=== PATIENT | female | born 1955 | race Caucasian/White ===

== ENCOUNTER 2018-01-26 21:40 | Inpatient (IN) | payer OTHER ==
[~2018-01-26] VITALS: Ht 157.5 cm; Wt 66.8 kg
[~2018-01-26 21:40] MED LIST: ADVAIR 250/501 DISK IH; MICROZIDE12.5 M1 PO; PROVENTIL,2.5 MG/0.5 IH; SINGULAIR10 MG PO; SPIRIVA RESPIMAT4 GM IH
[2018-01-27] VITALS (7 sets, daily range): BP systolic 139–186; BP diastolic 71–98
[2018-01-27 20:17] LABS: HEMATOCRIT 49.1 % (36.0-46.0); HEMOGLOBIN 16.1 G/DL (11.9-15.5); MCH 30.8 PG (29.0-34.0); MCHC 32.8 G/DL (30.0-36.0); MCV 94.1 FL (83-99); PLATELET COUNT 286 K/uL (156-360); RBC DIS.WIDTH-CV 13.3 % (11.8-14.6); RBC DIS.WIDTH-SD 46.3 % (39-53); RED BLOOD COUNT 5.22 M/uL (3.80-5.20); WHITE BLOOD COUNT 14.7 K/uL (4.1-10.2)
[2018-01-27 20:33] LABS: CHLORIDE 104 MEQ/L (99-109); CREATININE 0.7 MG/DL (0.6-1.3); GFR ESTIMATE (CALCULATED) > 59 mL/min/; GLUCOSE 173 mg/dL (70-99); POTASSIUM 4.3 MEQ/L (3.7-5.4); SODIUM 134 MEQ/L (136-147); UREA NITROGEN (BUN) 8 mg/dL (9-23)
[2018-01-27 21:24] LABS: PCO2 45 mm Hg (35-45); PO2 142 mm Hg (80-100); pH 7.32 (7.35-7.45)
[2018-01-27 21:25] LABS: BASE EXCESS -3.1 mEq/L (-3 to +3); BICARBONATE 23.2 mEq/L (22-26); COMMENTS - BLOOD GASES A+C+; DEVICE VENT; FI02 50 %; MECHANICAL RATE 14 resp/min; METHEMOGLOBIN 1.3 % (0-1.5); MODE ACVC; O2 SATURATION (CALCULATED) 98.8 % (95-99); SITE LR; TIDAL VOLUME 500 ML; TOTAL RESP RATE 14 resp/min
[2018-01-28] VITALS (19 sets, daily range): BP systolic 84–185; BP diastolic 55–80
[2018-01-28 05:46] LABS: HEMATOCRIT 36.9 % (36.0-46.0); HEMOGLOBIN 12.1 G/DL (11.9-15.5); MCH 30.6 PG (29.0-34.0); MCHC 32.8 G/DL (30.0-36.0); MCV 93.2 FL (83-99); PLATELET COUNT 228 K/uL (156-360); RBC DIS.WIDTH-CV 13.8 % (11.8-14.6); RBC DIS.WIDTH-SD 47.6 % (39-53); RED BLOOD COUNT 3.96 M/uL (3.80-5.20); WHITE BLOOD COUNT 10.6 K/uL (4.1-10.2)
[2018-01-28 05:58] LABS: CHLORIDE 106 MEQ/L (99-109); CREATININE 0.7 MG/DL (0.6-1.3); GFR ESTIMATE (CALCULATED) > 59 mL/min/; GLUCOSE 126 mg/dL (70-99); MAGNESIUM 1.2 mg/dl (1.3-2.7); PHOSPHORUS 3.6 mg/dL (2.5-4.9); POTASSIUM 4.1 MEQ/L (3.7-5.4); SODIUM 137 MEQ/L (136-147); UREA NITROGEN (BUN) 7 mg/dL (9-23)
[2018-01-28 06:19] LABS: COMMENTS - BLOOD GASES C+A+; DEVICE VENT; FI02 40 %; MECHANICAL RATE 14 resp/min; MODE AC; PCO2 41 mm Hg (35-45); PEEP 5 CM/H20; SITE RR; TIDAL VOLUME 500 ML; TOTAL RESP RATE 14 resp/min; pH 7.36 (7.35-7.45)
[2018-01-28 06:20] LABS: BASE EXCESS -2.2 mEq/L (-3 to +3); BICARBONATE 23.2 mEq/L (22-26); CARBOXY HGB 1.9 % (0-5); METHEMOGLOBIN 1.1 % (0-1.5); PO2 93 mm Hg (80-100)
[2018-01-29] VITALS (9 sets, daily range): BP systolic 108–168; BP diastolic 55–89
[2018-01-29 05:42] LABS: HEMATOCRIT 33.7 % (36.0-46.0); MCH 30.6 PG (29.0-34.0); MCHC 32.6 G/DL (30.0-36.0); MCV 93.9 FL (83-99); PLATELET COUNT 203 K/uL (156-360); RBC DIS.WIDTH-CV 13.6 % (11.8-14.6); RBC DIS.WIDTH-SD 47.3 % (39-53); RED BLOOD COUNT 3.59 M/uL (3.80-5.20); WHITE BLOOD COUNT 9.1 K/uL (4.1-10.2)
[2018-01-29 06:32] LABS: CHLORIDE 103 MEQ/L (99-109); CREATININE 0.7 MG/DL (0.6-1.3); GFR ESTIMATE (CALCULATED) > 59 mL/min/; GLUCOSE 96 mg/dL (70-99); POTASSIUM 3.6 MEQ/L (3.7-5.4); SODIUM 140 MEQ/L (136-147); UREA NITROGEN (BUN) 5 mg/dL (9-23)
[2018-01-29 06:33] LABS: MAGNESIUM 1.7 mg/dl (1.3-2.7); PHOSPHORUS 2.3 mg/dL (2.5-4.9)
[2018-01-30 06:42] LABS: HEMATOCRIT 37.1 % (36.0-46.0); HEMOGLOBIN 12.5 G/DL (11.9-15.5); MCH 31.6 PG (29.0-34.0); MCHC 33.7 G/DL (30.0-36.0); MCV 93.9 FL (83-99); PLATELET COUNT 242 K/uL (156-360); RBC DIS.WIDTH-SD 44.7 % (39-53); RED BLOOD COUNT 3.95 M/uL (3.80-5.20); WHITE BLOOD COUNT 8.5 K/uL (4.1-10.2)
[2018-01-30 07:07] LABS: CHLORIDE 97 MEQ/L (99-109); CREATININE 0.7 MG/DL (0.6-1.3); GFR ESTIMATE (CALCULATED) > 59 mL/min/; GLUCOSE 95 mg/dL (70-99); POTASSIUM 3.6 MEQ/L (3.7-5.4); SODIUM 138 MEQ/L (136-147); UREA NITROGEN (BUN) 5 mg/dL (9-23)
[2018-01-30 09:00] VITALS: BP 127/64
[2018-01-30] MEDS ORDERED: ENOXAPARIN40 MG/0.4 SC (09:38)
[2018-01-30] MEDS ORDERED: OXYCODONE HCL5 MG PO (09:38)
[2018-01-30 11:30] VITALS: BP 128/74
== END 2018-01-30 11:26 | disposition home or self-care (01) | DRG 739 ==
LOC: ENRESERV 21:40 → 2SOUTH 01-27 11:32 → 2EASTP 01-27 11:44 → 4WEST 01-27 11:44 → 2SOUTH 01-27 11:44 → ENRESERV 01-27 15:07 → 2SOUTH 01-27 17:56 → ENRESERV 01-27 18:14 → 4WEST 01-27 19:37 → ENRESERV 01-29 09:41 → 2EASTP 01-29 11:28
PROVIDERS: Nurse Practitioner Acute Care; Obstetrics & Gynecology Gynecologic Oncology; Surgery
DX: C54.1 Malignant neoplasm of endometrium (principal); R18.8 Other ascites; Z87.891 Personal history of nicotine dependence; R18.0 Malignant ascites; J44.9 Chronic obstructive pulmonary disease, unspecified; I10 Essential (primary) hypertension; Z88.1 Allergy status to other antibiotic agents; J95.821 Acute postprocedural respiratory failure; E87.2 Acidosis; R34 Anuria and oliguria; E87.1 Hypo-osmolality and hyponatremia
CPT/HCPCS: 36415; 36600; 80048; 82330; 82550; 82803; 83605; 83735; 84100; 85027; 86304; 86850; 86900; 86901; 86920; 87070; 87205; 87641; 88108; 88305; 88309; 94002; 94003; 94010; 94640; 94640 76; 94760; 94799; J1100; J1170; J1580; J1650; J1885; J2405; J2704; J2710; J2765; J2795; J3010; J3475; J7030; J7050; J7120; J7643; P9016; P9045; P9047; S0028; S0030